=== PATIENT | male | born 1980 | race Two or more races ===

== ENCOUNTER 2024-07-08 10:35 | Emergency (ER) | payer OTHER, SELFPAY ==
[2024-07-08 11:16] VITALS: BP 147/91; PULSE 95; RESP 17; TEMP 37.1; O2SAT 97; BMI 33.0
--- NOTE | 2024-07-08 11:36 | XR_ITS ---
Examination: CT abdomen and pelvis without contrast. Coronal 3-D reconstructions. Sagittal 2-D reconstructions. Date and time of exam:July 08, 2024 1149 hours INDICATIONS: Blood in urine and burning urinary sensation today CTDI: vol (mGy): 11.6 DLP: (mGycm): 714 Technique: Axial images of the abdomen have been obtained, 3 mm slice thickness Intravenous contrast material has not been administered. Low dose protocols were performed. One or more of the following dose reduction techniques were used; automated exposure control, adjustment of the mA and/or KV according to patient size, use of iterative reconstruction technique. Findings: Hepatomegaly 17 cm fatty infiltration No gallstones Spleen not enlarged No pancreatic mass Minimal left hydronephrosis left hydroureter with no renal or ureteral calculi Normal appendix No bowel obstruction Minimal thickening of urinary bladder wall up to 3 mm Osseous structures intact IMPRESSION: Minimal left hydronephrosis left hydroureter with no renal or ureteral calculi, consider left urinary tract infection, recent passage of a ureteral calculus Mild cystitis pattern
--- NOTE | 2024-07-08 11:37 | PD.EDRME ---
Rapid Medical Screening Exam E Arrival date/time: 07/08/24 10:35 43-year-old male presents to the emergency department with complaints of urinary symptoms, flank pain hematuria 5 days. I have greeted and performed a focused initial assessment of this patient. Initial appropriate labs ordered at this time. A comprehensive ED assessment and evaluation of the patient and analysis of all test and completion of medical decision making process will be conducted by additional ED provider. Chief Complaint: Abdominal Pain Time Seen by Provider: 07/08/24 11:15 Vital signs: Vital Signs Temperature 98.8 F 07/08/24 11:16 Pulse Rate 95 07/08/24 11:16 Respiratory Rate 17 07/08/24 11:16 Blood Pressure 147/91 H 07/08/24 11:16 Pulse Oximetry (%) 97 07/08/24 11:16 Oxygen Delivery Method Room Air 07/08/24 11:16
[2024-07-08 13:17] LABS: Basophils # (Auto) 0.1 Thou/mm3 (0.0-0.2); Basophils % (Auto) 0 % (0-2.5); Eosinophils # (Auto) 0.2 Thou/mm3 (0.0-0.5); Eosinophils % (Auto) 1 % (0-10); Hematocrit 45.7 % (41.0-53.0); Hemoglobin 16.1 g/dL (13.5-16.0); Immature Granulocytes % (Auto) 0 % (0-0); Immature Granulocytes Auto 0.06 Thou/mm3 (0.00-0.00); Lymphocytes # (Auto) 1.4 Thou/mm3 (1.0-4.8); Lymphocytes % (Auto) 9 % (10-50); Mean Corpuscular HGB Conc 35.2 g/dl (31.0-37.0); Mean Corpuscular Hemoglobin 30.5 pg (25.0-35.0); Mean Corpuscular Volume 87 fL (80-100); Monocytes # (Auto) 0.9 Thou/mm3 (0.0-0.8); Monocytes % (Auto) 6 % (0-12); Neutrophils # (Auto) 12.9 Thou/mm3 (1.8-7.7); Neutrophils % (Auto) 84 % (37-80); Nucleated Red Blood Cell % 0 /100 WBC (0); Platelet Count 309 Thou/mm3 (140-440); RDW Standard Deviation 39.7 fL (35.1-43.9); Red Blood Count 5.28 Miln/mm3 (4.50-5.90); White Blood Count 15.4 Thou/mm3 (3.8-10.6)
[2024-07-08 13:27] LABS: Alanine Aminotransferase 36 U/L (10-49); Albumin, Serum 5.1 gm/dL (3.5-5.0); Albumin/Globulin Ratio 1.6 (1.2-2.2); Alkaline Phosphatase 108 U/L (46-116); Anion Gap 8 (7-16); Aspartate Amino Transferase 23 U/L (0-34); BUN/Creatinine Ratio 13 Ratio (12-20); Bilirubin,Total 0.9 mg/dL (0.3-1.2); Blood Urea Nitrogen 12 mg/dL (9-23); Calcium 10.2 mg/dL (8.3-10.6); Calcium (Corrected) 10.2 mg/dL (8.5-10.1); Carbon Dioxide 27.3 mMol/L (20.0-31.0); Chloride 101 mMol/L (98-107); Creatinine (Component) 0.9 mg/dL (0.6-1.3); Estimated Creatinine Clearance 115.3 mL/min (>60); Globulin 3.1 gm/dL (2.3-3.5); Glucose 97 mg/dL (74-106); Lipase 44 U/L (12-53); Osmolality,Calculated 271 (275-295); Potassium 4.2 mMol/L (3.4-5.1); Sodium 136 mMol/L (136-145); Total Protein 8.2 gm/dL (5.7-8.2); eGFR > 60 See Note
[2024-07-08 13:37] LABS: Collection Type, Urine Clean Catch; Squamous Epithelial Cell,Urine 0 /hpf (0-5)
[2024-07-08 13:51] LABS: Bilirubin,Urine 1+ (Negative); Blood,Urine 3+ (Negative); Color,Urine Drk-Yellow (Lt Yel-Yel); Glucose, Urine Negative (Negative); Ketones,Urine 1+ (Negative); Leukocyte Esterase,Urine Positive (Negative); Nitrite,Urine Positive (Negative); PH,Urine 6.5 (5.0-7.0); Protein,Urine 1+ (Neg - Trace); RBC,Urine 257 /hpf (0-3); Specific Gravity,Urine 1.012 (1.001-1.035); WBC,Urine 1638 /hpf (0-5)
[2024-07-08 13:52] LABS: Clarity,Urine Hazy (Clear/Hazy)
[2024-07-08] MEDS: KETOROLAC INJ 60 MG/2 ML VIAL IM (17:20)
[2024-07-08] MEDS: CIPROFLOXACIN/D5w 400 MG IVPB 400 MG/200 ML BAG 200 MG IV (17:44)
[2024-07-08] MEDS: SODIUM CHLORIDE 0.9% 1000 ML 1,000 ML 999 ML IV (17:45)
--- NOTE | 2024-07-09 11:50 | PD.EDABDPN ---
ED Abdominal Pain RME/HPI General Chief Complaint: Abdominal Pain Stated complaint: pain with urination, flank pain Time seen by provider: 07/08/24 11:15 Arrival date/time: 07/08/24 10:35 This is a 43-year-old male with no significant past medical history presents to the emergency department with complaints of painful urination and flank pain. Patient reports previously treated by his PCP with antibiotics currently taking however reports symptoms have not improved. Denies nausea vomiting no fever. RME / HPI RME / HPI narrative: 07/08/24 10:35 43-year-old male presents to the emergency department with complaints of urinary symptoms, flank pain hematuria 5 days. I have greeted and performed a focused initial assessment of this patient. Initial appropriate labs ordered at this time. A comprehensive ED assessment and evaluation of the patient and analysis of all test and completion of medical decision making process will be conducted by additional ED provider. Related Data Previous Rx's ?Medication ?Instructions ?Recorded ciprofloxacin HCl 500 mg tablet 500 mg PO BID #14 tabs 07/09/24 (Cipro) Allergies Allergy/AdvReac Type Severity Reaction Status Date / Time No Known Allergies Allergy Verified 07/08/24 10:36 Review of Systems Review of Systems Systems Reviewed: All systems reviewed, normal except as documented Narrative Review of Systems: Gen: No fever, no chills, no weight loss EYES: No discharge, no visual changes, no pain HEENT: No ear pain, no congestion, no sore throat PULM: No shortness of breath, no cough, no congestion CV: No chest pain, no dyspnea on exertion, no palpitations GI: No nausea, no vomiting, no diarrhea, no pain, no constipation : + frequency, no urgency,? ++dysuria Musc/skel: No joint pain, no back pain Skin: No rash? Psyc: No hallucinations, no depression Heme/Lymph: No easy bleeding or bruising tendencies Neuro: No weakness, no headache ED Exam Narrative Physical exam: General: Sittiing in Exam table in no acute distress, answering questions appropriately HENT: normocephalic, atraumatic, EOMI, PERRLA, moist mucous membranes Chest: chest wall is nontender Cardiac: regular rate and rhythm, normal S1 and S2, no murmurs, rubs, or gallops, capillary refill ?2 seconds Pulmonary: clear to auscultation bilaterally, no wheezing, crackles, or rhonchi Abdominal: active bowel sounds, soft, nontender, nondistended Neuro: A&OX3, CN II-XII intact, sensation grossly intact bilaterally in UE and LE. Skin: no rashes, no ecchymosis Ext: no lower extremity edema Course Quality Measures none Orders Category Date Time Status Insert IV NOW Care 07/08/24 16:[address] abdomen pelvis wo con Stat Exams 07/08/24 11:36 Completed CBC Stat Lab 07/08/24 12:30 Completed Comprehensive Metabolic Panel Stat Lab 07/08/24 12:30 Completed Lipase Stat Lab 07/08/24 12:30 Completed Urinalysis Stat Lab 07/08/24 13:25 Completed Urine Culture Stat Lab 07/08/24 13:25 Completed CIPROFLOXACIN/D5w 400 MG IVPB [Cipro Ivpb] Med 07/08/24 16:15 Discontinued 400 mg in 200 ml IV X1 Ketorolac Inj [Toradol Inj] Med 07/08/24 16:15 Discontinued 60 mg IM X1 ONE Sodium Chloride 0.9% 1000 ml [Ns] 1,000 ml Med 07/08/24 16:14 Discontinued IV 999 mls/hr Vital Signs Vital signs: Vital Signs Temperature 98.8 F 07/08/24 11:16 Pulse Rate 95 07/08/24 11:16 Respiratory Rate 17 07/08/24 11:16 Blood Pressure 147/91 H 07/08/24 11:16 Pulse Oximetry (%) 97 07/08/24 11:16 Oxygen Delivery Method Room Air 07/08/24 11:16 Abdominal Pain MDM MDM Narrative MDM Narrative:: 43-year-old male clinical exam appears to have pyelonephritis. Will treat with IV antibiotics. Place in outpatient treatment Cipro sent to pharmacy. Advised to follow-up with PCP Return to the emergency department if there is any worsening symptoms or change in condition. Patient data External records reviewed:: [facility] previous records Clinical information provided by:: patient Social determinants that could affect healthcare access:: none Patient has the following chronic illnesses:: none How is presenting disease/condition affected by chronic disease/condition?: no chronic disease Evaluation data The following diagnostics were reviewed and interpreted by me:: radiology exam(s) Lab and/or radiology exams considered but not ordered:: none Interpretation Summary: Examination: CT abdomen and pelvis without contrast. Coronal 3-D reconstructions. Sagittal 2-D reconstructions. Date and time of exam:July 08, 2024 1149 hours INDICATIONS: Blood in urine and burning urinary sensation today CTDI: vol (mGy): 11.6 DLP: (mGycm): 714 Technique: Axial images of the abdomen have been obtained, 3 mm slice thickness Intravenous contrast material has not been administered. Low dose protocols were performed. One or more of the following dose reduction techniques were used; automated exposure control, adjustment of the mA and/or KV according to patient size, use of iterative reconstruction technique. Findings: Hepatomegaly 17 cm fatty infiltration No gallstones Spleen not enlarged No pancreatic mass Minimal left hydronephrosis left hydroureter with no renal or ureteral calculi Normal appendix No bowel obstruction Minimal thickening of urinary bladder wall up to 3 mm Osseous structures intact IMPRESSION: Minimal left hydronephrosis left hydroureter with no renal or ureteral calculi, consider left urinary tract infection, recent passage of a ureteral calculus Mild cystitis pattern Medications / Prescriptions Medications or Prescriptions considered but not ordered:: none Medication administrations:: Medication Administration History Discontinued Medications Sodium Chloride (Ns) 1,000 mls @ 999 mls/hr IV .Q1H1M ONE Stop: 07/08/24 17:14 Last Admin: 07/08/24 17:45 Dose: 999 mls/hr Documented By: ED Ciprofloxacin/Dextrose (Cipro Ivpb) 400 mg in 200 mls @ 200 mls/hr IV X1 ONE Stop: 07/08/24 17:14 Last Admin: 07/08/24 17:44 Dose: 200 mls/hr Documented By: ED Ketorolac Tromethamine (Ketorolac Inj 60 Mg/2 Ml Vial) 60 mg IM X1 ONE Stop: 07/08/24 16:16 Last Admin: 07/08/24 17:20 Dose: 60 mg Documented By: ED All medications administered and effective Consultations Consultation(s) initiated? (list below): No Diagnosis Differential diagnosis abdominal pain: abdominal pain, calculus of kidney, constipation, gastroenteritis, pancreatitis and small bowel obstruction Most likely diagnosis given after review of the tests above:: Kidney infection Admission Indicated Admission indicated?: not indicated Admission Request Was there a request for admission?: No Disposition Plan Disposition Plan: Discharge Discharge Attestation Discharge Attestation: The patient and all family members were given an opportunity to ask questions and understood the discharge instructions. Discharge instructions specifically effects, indications for sooner follow up or return to the emergency department, and the expected course of current diagnosis. Patient condition: Stable Discharge Plan Plan Patient Disposition: HOME (Self Care) Patient condition on transfer: Stable Prescriptions/Referrals Prescriptions/Med Rec: New ciprofloxacin HCl [Cipro] 500 mg tablet 500 mg PO BID Qty: 14 0RF Discontinued azithromycin [Zithromax Z-Paco] 250 mg tablet See Rx Instructions .ROUTE .COMPLEX Qty: 6 0RF Rx Instructions: take 500 mg today (day 1), then 250 mg for 4 days (days 2-5) Referrals: Blue Lim MD [Primary Care Provider] - In 1 week Problem List Clinical Impression: Kidney infection Patient/Caregiver Discharge Instructions Discharge Activity: activity as tolerated Education Materials: ED Kidney Stone, Passed, ED Pyelonephritis, Male (Adult) Additional Instructions: - It appears pretty that you had a kidney infection, possibly passed a kidney stone. -Will treat you with stronger antibiotics we gave you your first dose of IV antibiotics here, in addition with IV fluids. Please start your second dose of antibiotics tomorrow. I will start you on nausea medications in case you feel nauseous. Can take [id number] Tylenol B Profen for pain control Follow-up with your doctor in 2 days. A urine culture will be pending, have your doctor follow-up on this result. If despite using your new antibiotic you develop fever, chills rigors nausea or vomiting you will need to return to the emergency department for possible admission or further evaluation. Print Language: Burkinan Stand Alone Forms: Rubina Award Info., Work/School Release, Patient Portal Info Letter GABRIELLE/MARIE Supervising Physician GABRIELLE/MARIE Supervising Physician: Dr Harrington
== END 2024-07-08 20:14 | disposition home or self-care (01) ==
PROVIDERS: Nurse Practitioner Primary Care; Emergency Provider Emergency Medicine; PCP Family Medicine
DX: N15.9 Renal tubulo-interstitial disease, unspecified (principal); N13.30 Unspecified hydronephrosis
CPT/HCPCS: 36415; 74176; 80053; 81001; 83690; 85025; 87077; 87086; 87186; 87491; 87591; 87661; 96372; 99284; J0744; J1885; J7030